=== PATIENT | female | born 1975 | race African-American/Black ===

== ENCOUNTER 2016-06-04 21:25 | Observation (INO) | payer MEDICAID ==
[2016-06-04] MEDS ORDERED: CARAFATE1 G2 PO (21:36)
[2016-06-04] MEDS ORDERED: AMITRIPTYLINE H50 M1 PO (21:36)
[2016-06-04] MEDS ORDERED: DEXILANT30 M1 PO (21:37)
[2016-06-04] MEDS ORDERED: [UNRECOGNIZED DRUG - OTHER] PO (21:37)
[2016-06-04] MEDS ORDERED: CYCLOBENZAPRINE5 M1 PO (21:37)
[2016-06-04 22:51] LABS: BASO % 0.2 % (0-2); EOS % 0.5 % (0-7); HCT-HEMATOCRIT 30.3 % (34.0-49.0); HGB-HEMOGLOBIN 10.1 gm/dl (12.0-15.5); IMMATURE GRANULOCYTES ABSOLUTE 0.01 tho/cmm (0-0.03); IMMATURE GRANULOCYTES PERCENT 0.2 % (0-0.3); LYMPH % 35.2 % (20-45); LYMPH ABSOLUTE COUNT 1.4 tho/cmm (0.8-4.5); MCH (MEAN CORPUSCULAR HGB) 27.7 pg (28.0-32.0); MCHC MEAN CORPUSCULAR HGB CONC 33.3 % (32.0-36.0); MCV (MEAN CELL VOLUME) 83.2 fl (82.0-96.0); MONO % 7.9 % (0-12); MONOCYTE ABSOLUTE COUNT 0.3 tho/cmm (0.0-1.2); NEUTROPHIL ABSOLUTE COUNT 2.3 tho/cmm (1.6-8.0); NEUTROPHIL-AUTOMATED 2.3 tho/cmm (1.6-8.0); PLATELET COUNT 351 tho/cmm (150-450); RED BLOOD COUNT 3.64 mil/cmm (4.00-5.20); RED CELL DISTRIBUTION WIDTH 18.4 % (12.4-16.4)
[2016-06-04 23:06] LABS: PREGNANCY-SERUM NEGATIVE (NEGATIVE)
[2016-06-04 23:13] LABS: ALB/GLOB RATIO 0.7 (0.8-2.0); ALBUMIN 2.8 g/dl (3.5-5.0); ALKALINE PHOSPHATASE 99 U/L (33-138); ALT/SGPT 16 U/L (12-78); AMYLASE 52 U/L (20-90); ANION GAP 12 mmol/L (0-20); AST/SGOT 17 U/L (10-40); BILIRUBIN,TOTAL 0.5 mg/dl (0-1.5); BLOOD UREA NITROGEN 8 mg/dl (6-24); CALCIUM 7.9 mg/dl (8.5-10.5); CARBON DIOXIDE-VENOUS 23 mmol/L (22-32); CHLORIDE 111 mmol/l (96-110); CREATININE 0.64 mg/dl (0.50-1.10); GLUCOSE 87 mg/dL (70-110); LIPASE 59 U/L (73-393); MAGNESIUM 1.7 mg/dl (1.8-2.6); POTASSIUM 3.3 mmol/L (3.7-5.1); SODIUM 143 mmol/L (135-145); eGFR VALUE FOR BLACK >90 mL/Min
[2016-06-05 02:11] LABS: URINE BILIRUBIN NEGATIVE (NEG); URINE BLOOD NEGATIVE (NEG); URINE GLUCOSE (UA) NEGATIVE (NEG); URINE KETONE LARGE (NEG); URINE LEUKOCYTE ESTERASE POSITIVE (NEG); URINE NITRITE POSITIVE (NEG); URINE PROTEIN MODERATE (NEG); URINE SPECIFIC GRAVITY 1.015 (1.003-1.030)
[2016-06-05 02:18] LABS: URINE APPEARANCE HAZY; URINE COLOR YELLOW
[2016-06-05 02:19] LABS: URINE BACTERIA 4+; URINE EPITHELIAL CELLS 0 /[HPF] (0-10); URINE RBC 0 /[HPF] (0-5)
[2016-06-05 06:18] LABS: BASO % 0.3 % (0-2); EOS % 1.1 % (0-7); HCT-HEMATOCRIT 27.3 % (34.0-49.0); HGB-HEMOGLOBIN 8.9 gm/dl (12.0-15.5); LYMPH % 51.1 % (20-45); LYMPH ABSOLUTE COUNT 1.8 tho/cmm (0.8-4.5); MCH (MEAN CORPUSCULAR HGB) 27.9 pg (28.0-32.0); MCHC MEAN CORPUSCULAR HGB CONC 32.6 % (32.0-36.0); MCV (MEAN CELL VOLUME) 85.6 fl (82.0-96.0); MEAN PLATELET VOLUME 9.4 cmc (9.4-12.4); MONO % 10.3 % (0-12); MONOCYTE ABSOLUTE COUNT 0.4 tho/cmm (0.0-1.2); NEUTROPHIL ABSOLUTE COUNT 1.3 tho/cmm (1.6-8.0); NEUTROPHIL-AUTOMATED 1.3 tho/cmm (1.6-8.0); NEUTROPHILS % 37.2 % (40-80); PLATELET COUNT 324 tho/cmm (150-450); RED BLOOD COUNT 3.19 mil/cmm (4.00-5.20); RED CELL DISTRIBUTION WIDTH 18.5 % (12.4-16.4); WHITE BLOOD COUNT 3.5 tho/cmm (4.0-10.0)
[2016-06-05] MEDS ORDERED: MACROBID 100 M100 M1 PO (11:04)
[2016-06-05] MEDS ORDERED: TYLENOL325 M2 PO (11:05)
== END 2016-06-05 13:20 ==
LOC: EDMED 21:25 → EMR2 06-05 04:22 → 5WD 06-05 04:26
PROVIDERS: Family Medicine; Registered Nurse; ADMIT Hospitalist
DX: R10.13 Epigastric pain (principal); R11.2 Nausea with vomiting, unspecified; M79.7 Fibromyalgia; F41.9 Anxiety disorder, unspecified; D64.9 Anemia, unspecified; I10 Essential (primary) hypertension; J45.909 Unspecified asthma, uncomplicated; G89.29 Other chronic pain; F11.90 Opioid use, unspecified, uncomplicated; F12.90 Cannabis use, unspecified, uncomplicated; Z79.899 Other long term (current) drug therapy; Z86.711 Personal history of pulmonary embolism; Z98.84 Bariatric surgery status; Z98.890 Other specified postprocedural states
CPT/HCPCS: C1751; C9113; G0378; J0780; J1200; J2270; J2405; J2765; J3010; J7030; P9612